=== PATIENT | male | born 1995 | race Caucasian/White ===

== ENCOUNTER 2023-01-10 03:45 | Emergency (ER) | payer BC ==
[~2023-01-10] VITALS: Ht 162.6 cm; Wt 56.5 kg
[2023-01-10 03:56] VITALS: BP 130/92
[2023-01-10] MEDS ORDERED: MAGNESIUM/ALUMINUM HYDROXIDE/SIMETHICONE 30ML UDC PO ONE (08:00)
[2023-01-10] MEDS ORDERED: METOCLOPRAMIDE HCL 10MG/2ML VIAL IV ONE (08:00)
[2023-01-10 08:55] LABS: BASOPHILS % 0.3 % (0.0-2.0); EOSINOPHILS % 0.2 % (0.0-5.0); HEMATOCRIT. 41.5 % (42.0-52.0); HEMOGLOBIN. 14.3 g/dL (14.0-18.0); LYMPHOCYTES % 25.9 % (20.0-50.0); MEAN CORPUSCULAR HEMOGLOBIN 31.7 pg (28.0-32.0); MEAN CORPUSCULAR VOLUME 91.7 fL (80.0-94.0); MEAN PLATELET VOLUME 8.1 fl (7.4-10.4); MONOCYTES % 6.2 % (2.0-8.0); NEUTROPHILS % 67.4 % (40.0-76.0); PLATELET 362 x1000/uL (130-400); RED BLOOD CELL COUNT 4.53 mill/uL (4.7-6.1); RED CELL DISTRIBUTION WIDTH 13.4 % (11.6-14.6)
[2023-01-10 09:00] LABS: CHLORIDE 106 mEq/L (98-107)
[2023-01-10] MEDS ORDERED: METO5TAB86 MT (13:24)
[2023-01-10] MEDS ORDERED: DIPH25CA83 MT (13:25)
== END 2023-01-10 13:57 | disposition home or self-care (01) ==
LOC: ER 03:45
DX: R10.13 Epigastric pain (principal)
CPT/HCPCS: 36415; 71045; 76705; 80053; 83880; 84484; 85025; 93005; 96374; 99285; J2765